=== PATIENT | female | born 1955 | race Caucasian/White ===

== ENCOUNTER 2017-02-06 05:43 | Day surgery (SDC) | payer OTHER ==
[~2017-02-06] VITALS: Ht 157.5 cm; Wt 67.9 kg
[~2017-02-06 05:43] MED LIST: LISI20TA11 PO
[2017-02-06 06:35] VITALS: Ht 157.5 cm; Wt 67.9 kg
[2017-02-06] MEDS ORDERED: METO-429 PO (06:41)
[2017-02-06 07:15] VITALS: BP 125/91; PULSE 61; RESP 47
--- NOTE | 2017-02-06 07:40 | OPPN ---
Date/Time of Note Date/Time of Note DATE: 02/06/17 TIME: 07:38 Operative Report Preoperative Diagnosis Abdominal pain Chronic heartburn Postoperative Diagnosis Gastroesophageal reflux disease Gastritis with erosions Operation/Procedure Performed Esophagogastroduodenoscopy and biopsy Provider: TONI CHATMAN MD Anesthesia Type: moderate sedation Estimated blood loss: none Transfusion Required: no Specimens Gastric mucosal biopsy Grafts/Implants: none Complications: no TONI CHATMAN MD Feb 06, 2017 07:40
[2017-02-06] MEDS ORDERED: FENTAnyl 50 MCG/ML VIAL ONE (07:41)
[2017-02-06] MEDS ORDERED: MIDAZOLAM 1 MG/ML 2 ML INJ ONE (07:41)
[2017-02-06 08:00] VITALS: BP 108/65; PULSE 58; RESP 14
--- NOTE | 2017-02-06 08:56 | GILP ---
DATE OF PROCEDURE: 02/06/2017 PROCEDURE PERFORMED: Esophagogastroduodenoscopy and biopsy. SURGEON: Dr. Sethi. PREOPERATIVE DIAGNOSES: 1. Abdominal pain. 2. Chronic heartburn. POSTOPERATIVE DIAGNOSES: 1. Gastroesophageal reflux disease. 2. Gastritis with erosions. 3. Gastric mucosal biopsies were taken for Helicobacter pylori test. INDICATION: Ms. Ghazal Modi is a 62-year-old female patient who had upper abdominal pain and chronic heartburn not responding to therapy. The patient was scheduled for endoscopic examination for further evaluation. The procedure and possible complications were well explained to the patient. The patient understood and consented to the procedure. DESCRIPTION OF PROCEDURE: Under the influence of fentanyl and Versed, the gastroscope was carefully introduced into the esophagus. Under direct vision, it was advanced to the stomach, into the pylorus, into the duodenal bulb, and descending duodenum. FINDINGS: Esophagus: Patient had gastroesophageal reflux disease. Stomach: She had gastritis with erosions. Gastric mucosal biopsies were taken for H pylori test. Duodenum was normal. The patient tolerated the procedure very well. There was no complication from the procedure. At the end of procedure, she was awake with stable vital signs and she was discharged home in the care of her family. IMPRESSION: Please see postop diagnoses. PLAN: 1. Pantoprazole 40 mg p.o. in the morning. 2. Await H pylori test report. Dictated By: MD RAYNA Wetzel/ivonne/maryann /Document#: [id number]
== END 2017-02-06 10:54 | disposition home or self-care (01) ==
LOC: GIL 05:43
PROVIDERS: ATTEND Internal Medicine Gastroenterology
DX: K21.9 Gastro-esophageal reflux disease without esophagitis (principal); K29.60 Other gastritis without bleeding; I10 Essential (primary) hypertension
CPT/HCPCS: 43239; 87081; J2250; J3010; Z7610

== ENCOUNTER 2017-03-18 06:12 | Day surgery (SDC) | payer OTHER ==
[~2017-03-18] VITALS: Ht 162.6 cm; Wt 67.9 kg
[~2017-03-18 06:12] MED LIST changes: +METO-429 PO
[2017-03-18] MEDS ORDERED: losartan (07:09)
[2017-03-18 07:11] VITALS: Ht 162.6 cm; Wt 67.9 kg
[2017-03-18 07:56] VITALS: BP 133/71; PULSE 56; RESP 18
--- NOTE | 2017-03-18 08:40 | OPPN ---
Date/Time of Note Date/Time of Note DATE: 03/18/17 TIME: 08:39 Operative Report Preoperative Diagnosis Screening Postoperative Diagnosis 2 small colon polyps removed Operation/Procedure Performed Colonoscopy and biopsy Surgeon see signature line assistant news director None Anesthesia: moderate sedation Estimated blood loss: none Transfusion Required none Specimen Colon polyps Grafts/Implants none Complications none TONI CHATMAN MD Mar 18, 2017 08:40
[2017-03-18] MEDS ORDERED: FENTAnyl 50 MCG/ML VIAL ONE (08:44)
[2017-03-18] MEDS ORDERED: MIDAZOLAM 1 MG/ML 2 ML INJ ONE ×2 (08:44)
[2017-03-18 09:01] VITALS: BP 124/70; PULSE 59; RESP 24
--- NOTE | 2017-03-18 10:12 | GILP ---
DATE OF PROCEDURE: 03/18/2017 PREOPERATIVE DIAGNOSIS: Screening colonoscopy. POSTOPERATIVE DIAGNOSES: 1. Colonoscopy all the way to the cecum. 2. Two small colon polyps were removed using biopsy forceps. 3. Internal hemorrhoids. PROCEDURE PERFORMED: Colonoscopy and biopsy. SURGEON: Félix Sethi MD. INDICATION: Ms. Ghazal Modi is a 62-year-old female patient who was scheduled for screening colonoscopy. The procedure and possible complications were well explained to the patient. She understood and consented to the procedure. DESCRIPTION OF PROCEDURE: Under influence of fentanyl and Versed, the colonoscope was carefully introduced in the rectum. Under direct vision, it was advanced all the way to the cecum. FINDINGS: The patient had 2 small colon polyps, and they were removed using biopsy forceps. The patient was noted to have internal hemorrhoids. She tolerated the procedure very well. There was no complication from the procedure. At the end of procedure, she was awake with stable vital signs and she was discharged home in the care of her family. IMPRESSION: Please see postop diagnoses. PLAN: 1. Await histopathology report. 2. Next screening colonoscopy in 5 years. Dictated By: MD RAYNA Wetzel/ivonne/joan /Document#: [id number]
== END 2017-03-18 10:30 | disposition home or self-care (01) ==
LOC: GIL 06:12
PROVIDERS: ATTEND Internal Medicine Gastroenterology
DX: Z12.11 Encounter for screening for malignant neoplasm of colon (principal); K64.8 Other hemorrhoids; K63.5 Polyp of colon
CPT/HCPCS: 45380; 88305; J2250; J3010; Z7610